=== PATIENT | male | born 1940 | race Caucasian/White ===

== ENCOUNTER 2021-08-18 11:30 | Day surgery (SDC) | payer MEDICARE ==
[2021-08-18] MEDS ORDERED: Depo-Medrol 40 MG/ML IM ONE (11:31)
[2021-08-18] MEDS ORDERED: LIDOCAINE HCL 2% 100 MG/5 ML IJ ONE (11:31)
[2021-08-18] MEDS ORDERED: DIPRIVAN 200 MG/20 ML IV ONE (13:44)
[2021-08-18] MEDS ORDERED: Lactated Ringers 1,000 ML IV ONE (13:49)
--- NOTE | 2021-08-18 15:08 | XRAY ---
Indication: Bilateral L4-S1 MBB. Intraoperative fluoroscopy provided for 46 seconds. Single digital spot image submitted for interpretation demonstrates posterior needle tips projecting over the expected left and right L4-S1 nerve roots. Correlate with intraoperative findings/report. Incidental bilateral L5-S1 posterior fusion hardware.
--- NOTE | 2021-08-18 15:11 | XRAY ---
46 seconds fluoroscopy time in surgery for bilateral L4-S1 MBB.
== END 2021-08-18 14:15 | disposition home or self-care (01) ==
LOC: SDC-PAIN 11:30
PROVIDERS: ATTEND Psychiatry & Neurology Pain Medicine
DX: M47.816 Spondylosis without myelopathy or radiculopathy, lumbar region (principal); Z79.899 Other long term (current) drug therapy
CPT/HCPCS: 64493; 64494; 72020; 77002; J1030; J2704

== ENCOUNTER 2021-09-15 11:43 | Day surgery (SDC) | payer MEDICARE ==
[2021-09-15] MEDS ORDERED: Lactated Ringers 1,000 ML IV ONE (11:44)
[2021-09-15] MEDS ORDERED: Marcaine Mpf 0.5% Vial 30 Ml IJ ONE (11:44)
[2021-09-15] MEDS ORDERED: Xylocaine 1% Vial 30 ML PF IJ ONE (11:44)
[2021-09-15] MEDS ORDERED: Depo-Medrol 40 MG/ML IM ONE (11:44)
[2021-09-15] MEDS ORDERED: DIPRIVAN 200 MG/20 ML IV ONE (14:23)
--- NOTE | 2021-09-15 16:36 | XRAY ---
Indication: Left L4-S1 RFA. Intraoperative fluoroscopy provided for 34 seconds. 4 digital spot images submitted for interpretation demonstrates posterior needle tips projecting over the expected left L4-S1 nerve roots. Correlate with intraoperative findings/report. Incidental bilateral lumbosacral junction fusion hardware and aortobiiliac stent grafts.
--- NOTE | 2021-09-15 16:55 | XRAY ---
34 seconds of fluoroscopy was used in surgery for a left L4-S1 RFA.
== END 2021-09-15 14:17 | disposition home or self-care (01) ==
LOC: SDC-PAIN 11:43
PROVIDERS: ATTEND Psychiatry & Neurology Pain Medicine
DX: M47.816 Spondylosis without myelopathy or radiculopathy, lumbar region (principal)
CPT/HCPCS: 64635; 64636; 72100; 77002; 99100; J1030; J2001; J2704

== ENCOUNTER 2021-09-22 08:38 | Day surgery (SDC) | payer MEDICARE ==
[2021-09-22] MEDS ORDERED: Marcaine Mpf 0.5% Vial 30 Ml IJ ONE (08:39)
[2021-09-22] MEDS ORDERED: Xylocaine 1% Vial 30 ML PF IJ ONE (08:39)
[2021-09-22] MEDS ORDERED: Depo-Medrol 40 MG/ML IM ONE (08:39)
[2021-09-22] MEDS ORDERED: Lactated Ringers 1,000 ML IV ONE (10:11)
[2021-09-22] MEDS ORDERED: DIPRIVAN 200 MG/20 ML IV ONE (10:21)
--- NOTE | 2021-09-22 11:40 | XRAY ---
Indication: Right L4-S1 RFA. Intraoperative fluoroscopy provided for 34 seconds. 2 digital spot image submitted for interpretation demonstrate posterior needle tips projecting over the expected right L4-S1 nerve roots. Correlate with intraoperative findings/report. Incidental bilateral lumbosacral junction fusion hardware and aortobiiliac stent grafts.
--- NOTE | 2021-09-22 11:44 | XRAY ---
34 seconds of fluoroscopy was used in surgery for a right L4-S1 RFA.
== END 2021-09-22 11:04 | disposition home or self-care (01) ==
LOC: SDC-PAIN 08:38
PROVIDERS: ATTEND Psychiatry & Neurology Pain Medicine
DX: M47.816 Spondylosis without myelopathy or radiculopathy, lumbar region (principal); Z79.899 Other long term (current) drug therapy
CPT/HCPCS: 64635; 64636; 72100; 77002; J1030; J2001; J2704